=== PATIENT | female | born 2005 | race Caucasian/White ===

== ENCOUNTER 2023-11-15 12:53 | Emergency (ER) | payer OTHER | END 2023-11-15 14:02 | disposition home or self-care (01) | LOC: FB.ED 12:53 | DX: M25.60 Stiffness of unspecified joint, not elsewhere classified (principal); M25.532 Pain in left wrist; Z91.048 Other nonmedicinal substance allergy status; V49.9XXA Car occupant (driver) (passenger) injured in unspecified traffic accident, initial encounter | CPT/HCPCS: 99283 ==